=== PATIENT | female | born 1975 | race Caucasian/White ===

== ENCOUNTER 2016-08-16 20:43 | Emergency (ER) | payer OTHER ==
[~2016-08-16] VITALS: Ht 162.6 cm; Wt 79.2 kg
[~2016-08-16 20:43] MED LIST: AFRIN,GENASAL D15 ML BOTH NARES; AUGMENTIN875 MG PO; CLARITIN10 MG PO; CLEOCIN300 MG PO; CYMBALTA20 MG PO; FLONASE16 G1 BOTH NARES; LODINE200 MG PO; MEDROL DOSEPAK4 MG PO; Motrin PO; NAPROSYN500 MG PO; NAPROXEN500 MG PO; PEN-VEE K,VEET500 MG PO; PERCOCET 5/31 TABLET PO; TIZANIDINE HCL4 MG PO; ULTRACET1 TABLET PO; ULTRAM50 MG PO; VALIUM5 MG PO; WOMENS MULTI VITAMIN
[2016-08-16 20:49] VITALS: BP 120/66
[2016-08-16] MEDS ORDERED: CLARITIN10 M3 PO (21:54)
[2016-08-16] MEDS ORDERED: NAPROXEN500 MG PO (23:17)
[2016-08-16] MEDS ORDERED: SKELAXIN800 MG PO (23:17)
== END 2016-08-16 23:52 | disposition home or self-care (01) ==
LOC: EME 20:43 → EXP 20:43
DX: M54.31 Sciatica, right side (principal); S39.012A Strain of muscle, fascia and tendon of lower back, initial encounter; X50.9XXA Other and unspecified overexertion or strenuous movements or postures, initial encounter
CPT/HCPCS: 99281; 99283

== ENCOUNTER 2017-09-21 21:48 | Emergency (ER) | payer OTHER ==
[~2017-09-21] VITALS: Ht 162.6 cm; Wt 80.1 kg
[~2017-09-21 21:48] MED LIST changes: +CLARITIN10 M3 PO; +SKELAXIN800 MG PO
[2017-09-21 22:32] LABS: APPEARANCE CLEAR ((CLEAR)); BILIRUBIN NEGATIVE; BLOOD NEGATIVE; COLOR STRAW ((YELLOW)); GLUCOSE (STRIP) NEGATIVE; KETONES NEGATIVE; LEUKOCYTES NEGATIVE; NITRITE NEGATIVE; PROTEIN (STRIP) NEGATIVE; SPECIFIC GRAVITY 1.003 (1.000-1.030); UROBILINOGEN 0.2 MG/DL (0.2-1.0)
[2017-09-21] MEDS ORDERED: NORCO 7.5/321 TABLET PO (23:58)
[2017-09-21] MEDS ORDERED: INDOCIN50 MG PO (23:58)
[2017-09-21] MEDS ORDERED: VALIUM5 MG PO (23:58)
[2017-09-22 00:11] VITALS: BP 143/99
== END 2017-09-22 | disposition home or self-care (01) ==
LOC: EME 21:48
PROVIDERS: Physician Assistant
DX: S39.012A Strain of muscle, fascia and tendon of lower back, initial encounter (principal); M54.31 Sciatica, right side; G57.01 Lesion of sciatic nerve, right lower limb; X50.0XXA Overexertion from strenuous movement or load, initial encounter; Z88.5 Allergy status to narcotic agent
CPT/HCPCS: 81003; 99281; 99284